=== PATIENT | female | born 1960 | race Caucasian/White ===

== ENCOUNTER 2019-12-20 14:59 | Outpatient (CLI) | payer OTHER, SELFPAY ==
--- NOTE | ~2019-12-20 | MM_ITS ---
EXAMINATION: MM screening [facility] BI w serena HISTORY: Screening mammogram TECHNIQUE: Craniocaudal and mediolateral oblique 3-D tomosynthesis images were obtained and synthetic 2-D images were generated. CAD analysis was submitted and interpreted. COMPARISON: 11/15/2018, 11/09/2017, 09/30/2016 BREAST PARENCHYMAL COMPOSITION: There are scattered areas of fibroglandular density. FINDINGS: There is no evidence of suspicious mass, calcification, or architectural distortion to sugg est malignancy in either breast. There has been no suspicious interval change. IMPRESSION: 1. No mammographic evidence of malignancy. 2. Recommend routine screening mammography in one year. BI-RADS Category 1: Negative Reviewed, dictated and finalized at location A.
== END 2019-12-20 15:00 | disposition home or self-care (01) ==
LOC: ANHIMG 15:00
PROVIDERS: PCP Internal Medicine
DX: Z12.31 Encounter for screening mammogram for malignant neoplasm of breast (principal)
CPT/HCPCS: 77063; 77067

== ENCOUNTER 2021-03-06 08:04 | Outpatient (CLI) | payer OTHER, SELFPAY ==
--- NOTE | ~2021-03-06 | MM_ITS ---
EXAMINATION: MM screening [facility] BI w serena HISTORY: Screening mammogram TECHNIQUE: Craniocaudal and mediolateral oblique 3-D tomosynthesis images were obtained and synthetic 2-D images were generated. CAD analysis was submitted and interpreted. COMPARISON: 12/20/2019, 11/15/2018, 11/09/2017 bilateral digital screening mammogram examinations BREAST PARENCHYMAL COMPOSITION: There are scattered areas of fibroglandular density. FINDINGS: Scattered bilateral benign calcifications. There is no evidence of suspicious mass, calcifi cation, or architectural distortion to suggest malignancy in either breast. There has been no suspici ous interval change. IMPRESSION: 1. No mammographic evidence of malignancy. 2. Recommend routine screening mammography in one year. BI-RADS Category 2: Benign finding(s). Reviewed, dictated and finalized at location A.
== END 2021-03-06 08:05 | disposition home or self-care (01) ==
LOC: ANHIMG 08:10
PROVIDERS: PCP Internal Medicine
DX: Z12.31 Encounter for screening mammogram for malignant neoplasm of breast (principal)
CPT/HCPCS: 77063; 77067

== ENCOUNTER 2022-04-28 09:46 | Outpatient (CLI) | payer OTHER, SELFPAY ==
--- NOTE | ~2022-04-28 | MM_ITS ---
EXAMINATION: MM screening [facility] BI w serena HISTORY: Screening TECHNIQUE: Craniocaudal and mediolateral oblique 3-D tomosynthesis images were obtained and synthetic 2-D images were generated. CAD analysis was submitted and interpreted. COMPARISON: Comparison to multiple prior studies sequentially, with oldest reviewed study dated 09/30. BREAST PARENCHYMAL COMPOSITION: There are scattered areas of fibroglandular density. FINDINGS: There is no evidence of suspicious mass, calcification, or architectural distortion to sugg est malignancy in either breast. There has been no suspicious interval change. IMPRESSION: 1. No mammographic evidence of malignancy. 2. Recommend routine screening mammography in one year. BI-RADS Category 1: Negative Reviewed, dictated and finalized at location A. 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
== END 2022-04-28 09:47 | disposition home or self-care (01) ==
LOC: ANHIMG 09:52
PROVIDERS: PCP Internal Medicine
DX: Z12.31 Encounter for screening mammogram for malignant neoplasm of breast (principal)
CPT/HCPCS: 77063; 77067

== ENCOUNTER 2023-06-10 15:47 | Outpatient (CLI) | payer OTHER, SELFPAY ==
--- NOTE | ~2023-06-10 | MM_ITS ---
EXAMINATION: MM screening [facility] BI w serena HISTORY: Screening mammogram TECHNIQUE: Craniocaudal and mediolateral oblique 3-D tomosynthesis images were obtained and synthetic 2-D images were generated. CAD analysis was submitted and interpreted. COMPARISON: 04/28/2022, 03/02/2021, 12/20/2019 bilateral screening mammogram examinations BREAST PARENCHYMAL COMPOSITION: There are scattered areas of fibroglandular density. FINDINGS: There is no evidence of suspicious mass, calcification, or architectural distortion to sugg est malignancy in either breast. There has been no suspicious interval change. IMPRESSION: 1. No mammographic evidence of malignancy. 2. Recommend routine screening mammography in one year. BI-RADS Category 1: Negative Reviewed, dictated and finalized at location A. 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
== END 2023-06-10 15:48 | disposition home or self-care (01) ==
PROVIDERS: PCP Family Medicine
DX: Z12.31 Encounter for screening mammogram for malignant neoplasm of breast (principal)
CPT/HCPCS: 77063; 77067

== ENCOUNTER 2024-06-29 00:24 | Day surgery (SDC) | payer OTHER, SELFPAY ==
[2024-06-14 16:12] VITALS: BMI 23.1
[2024-06-29] MEDS: LACTATED RINGERS 1,000 ML 150 ML IV CONT (09:53)
[2024-06-29 09:54] LABS: Glucose Point of Care 79 mg/dl (65-105)
--- NOTE | 2024-06-29 10:03 | PM.HPGS ---
History of Present Illness History of Present Illness Consent: Risks, benefits, and alternatives have been discussed and questions answered. Patient agrees to proceed with procedure. Chief complaint: screening malignant neoplasm colon Narrative: Antoinette Navarro is a 64 year old female here for screening colonoscopy, last one 10 years ago Review of Systems Review of Systems: All systems reviewed & are unremarkable except as noted in HPI and below PMFSH Family History Family History Father Hypertension Family history of diabetes mellitus in first degree relative Mother Hypertension Family history of diabetes mellitus in first degree relative Family history of malignant neoplasm of ovary Sibling Hypertension Family history of diabetes mellitus in first degree relative Social History Social History Smoking packs per day: 1 Smoking cigarettes per day: 20.0 Years smoked: 20 Smoking pack-years: 20.00 Smoking status: Former smoker Tobacco type: cigarettes Second hand tobacco smoke exposure: No Smoking end date: 06/13/95 Additional smoking assessment comments: quit smoking 25 years ago Alcohol intake: never Alcohol use details: socially Substance use: never Substance use type: does not use Lack of Transportation: No Lack of Food: Never True Current Housing: I Have Housing Concerned About Future Housing: No Difficulty Paying Gas/Electric Bills: No Difficulty Paying for Meds: No Currently Unemployed: No Education: Bachelor's Degree Difficulty w/ Childcare or Family Care: No Living arrangements: with family Spiritual care concerns: No Meds Home Medications and Allergies Home Medications ?Medication ?Instructions ?Recorded ?Confirmed ?Type lisinopril 40 mg tablet See Rx Instructions .Route 07/26/23 06/29/24 Rx .COMPLEX #90 tabs tirzepatide 15 mg/0.5 mL 15 mg (0.5 mL) subcut WEEKLY #6 mL 02/14/24 06/29/24 Rx subcutaneous pen injector (Max) dapagliflozin propanediol 5 mg 5 mg PO DAILY #90 tabs 02/29/24 06/29/24 Rx tablet (Farxiga) metformin 500 mg tablet See Rx Instructions .Route 04/24/24 06/29/24 Rx .COMPLEX #90 tabs atorvastatin 20 mg tablet 20 mg PO DAILY #90 tabs 05/14/24 06/29/24 Rx Allergies Allergy/AdvReac Type Severity Reaction Status Date / Time No Known Allergies Allergy Verified 06/14/24 16:05 Exam Const: General: comfortable and no acute distress HENMT: Face/Nose/Sinus: Normal nares present Eyes: General: appearance normal, both eyes and all related structures Neck: Neck: no JVD Resp: Auscultation: clear to auscultation bilaterally Cardio: Rate: regular rate Rhythm: regular rhythm GI: Inspection: non-distended GI Palp: Yes Soft to palpation Skin: General skin exam: normal color Neuro: General: gait normal Speech: normal speech Extrem: General: normal to inspection Psych: Mental Status: mental status grossly normal Assessment and Plan Assessment and plan (1) Colon cancer screening: Code(s): Z12.11 - Encounter for screening for malignant neoplasm of colon Status: Acute Assessment and Plan: colonoscopy
--- NOTE | 2024-06-29 10:07 | P.PNAN_ITS ---
Anes - Initial Pre Proc Eval Procedure: Operation Date: 06/29/24 12:00 Proposed Procedures p Screening Colonoscopy - Neri Walker MD Date/Time: 06/29/24 10:07 Surgeon: Neri Walker MD Pre Op Diagnosis: screening malignant neoplasm colon Patient Data Age: 64 Gender: F Height: 1.68 m Weight: 61.7 kg Allergies Allergy/AdvReac Type Severity Reaction Status Date / Time No Known Allergies Allergy Verified 06/14/24 16:05 Home Medications ?Medication ?Instructions ?Recorded ?Confirmed ?Type lisinopril 40 mg tablet See Rx Instructions .Route 07/26/23 06/29/24 Rx .COMPLEX #90 tabs tirzepatide 15 mg/0.5 mL 15 mg (0.5 mL) subcut WEEKLY #6 mL 02/14/24 06/29/24 Rx subcutaneous pen injector (Mounjaro) dapagliflozin propanediol 5 mg 5 mg PO DAILY #90 tabs 02/29/24 06/29/24 Rx tablet (Farxiga) metformin 500 mg tablet See Rx Instructions .Route 04/24/24 06/29/24 Rx .COMPLEX #90 tabs atorvastatin 20 mg tablet 20 mg PO DAILY #90 tabs 05/14/24 06/29/24 Rx Laboratory Tests 06/29/24 09:48 POC Capillary Glucose 79 mg/dl (65-105) Patient hx anesthesia problems: none Family hx anesthesia problems: none Results Review: All pre-operative results and documents have been reviewed as part of the pre- operative evaluation. COUNT INCLUDES THE [facility] Past Medical History Medical History (Updated 06/29/24 @ 10:08 by Faizan Puentes MD) Dyslipidemia Restless leg T2DM (type 2 diabetes mellitus) Family History Family History Father Hypertension Family history of diabetes mellitus in first degree relative Mother Hypertension Family history of diabetes mellitus in first degree relative Family history of malignant neoplasm of ovary Sibling Hypertension Family history of diabetes mellitus in first degree relative Social History Social History Smoking packs per day: 1 Smoking cigarettes per day: 20.0 Years smoked: 20 Smoking pack-years: 20.00 Smoking status: Former smoker Tobacco type: cigarettes Second hand tobacco smoke exposure: No Smoking end date: 06/13/95 Additional smoking assessment comments: quit smoking 25 years ago Alcohol intake: never Alcohol use details: socially Substance use: never Substance use type: does not use Lack of Transportation: No Lack of Food: Never True Current Housing: I Have Housing Concerned About Future Housing: No Difficulty Paying Gas/Electric Bills: No Difficulty Paying for Meds: No Currently Unemployed: No Education: Bachelor's Degree Difficulty w/ Childcare or Family Care: No Living arrangements: with family Spiritual care concerns: No Anes - Eval Final PreProcedure Day of Procedure 06/29/24 10:07 Patient weight: normal Heart: regular rate and rhythm Lungs: clear to auscultation Airway: Mallampati scale class II Neurological: alert and oriented Last oral intake: >/= 8 hours ASA classification: III Emergent: no Anesthetic plan: proceed Anesthesia type and monitoring: general GIVS and standard monitoring Results Review: All pre-operative results and documents have been reviewed as part of the pre- operative evaluation. Informed Consent: The patient's anesthetic plan and its attendant risks and benefits were discussed with the patient/family/POA. Questions were solicited and answers provided to the satisfaction of the patient/family/POA.
[2024-06-29 10:23] VITALS: BP 108/57; PULSE 94; RESP 16; O2SAT 100
[2024-06-29 10:33] VITALS: BP 93/67; PULSE 98; RESP 21; O2SAT 100
[2024-06-29 10:43] VITALS: BP 119/67; PULSE 98; RESP 23; O2SAT 100
--- OUTSIDE RECORDS SUMMARY | 2024-07-05 04:49 | XMS_ITS | Referral Summary ---
Author Organization [facility] Address [address] [place] [address] Care Team Providers Care Regional Education Coordinator Name Role Phone Kodi Medina MD Unavailable [phone] Tejas Jean DO Primary Care Provider [phone] [facility],non-[facility] Affiliates and Associated Physician Practices is amultiple site organization consisting of ambulatory clinics and hospital sitesin [place], [place], [place] and [place]. This disclosure is being madepursuant to the Care Everywhere program and may not contain all information available regarding this patient. Last updated 18.[facility] Encounters Date Type Department Care Team Description 05/09/2024 Travel 05/09/2024 10:00 AM TELEPHONE SURVEYOR Office Visit [facility] [address] [place] [address], [address] [place] [address] Kodi Medina MD Pap smear, as part of routine gynecological examination (Primary Dx) from Last 3 Months Allergies No known active allergies Medications * Be aware that medications may not be up to date on this document. Alwaysverify current medications with the patient. Medication Sig Dispensed Refills Start Date End Date Status metFORMIN (GLUCOPHAGE) 500 MG tablet Take 1 (one) tablet by mouth once daily 07/22/2012 Active lisinopril (PRINIVIL; ZESTRIL) 40 MG tablet Take 1 (one) tablet by mouth once daily Active atorvastatin (LIPITOR) 20 MG tablet Take 1 (one) tablet by mouth at bedtime Active dapagliflozin propanediol (Farxiga) 5 MG tablet Take 1 (one) tablet by mouth every morning 01/12/2020 Active tirzepatide (Mounjaro) 15 MG/0.5ML injection Inject 15 (fifteen) mg subcutaneously every 7 days Active Active Problems Problem Noted Date Diagnosed Date Screening for condition 05/06/2008 Overview (03/13/2015): Adult Abstraction Problem List Screening Pap Smear: Result: 05/22/2007 Mammogram: Result: 06/24/2007 Immunizations Name Administration Dates Next Due INFLUENZA VACCINE, QUADR. (F LUZONE; FLULAVAL; FLUARIX; AFLURIA QUADRIVALENT; 6MO+), 0.5 ML (IIV4) 02/27/2020,04/05/2018 PNEUMOCOCCAL PCV20 CONJ VAC IM 09/11/2021 PNEUMOCOCCAL PPV VACCINE 10/24/2018 TDAP, HISTORIC VACCINE 06/25/2021 Zoster Hzv Vacc Recombinant Inj Im 03/16/2019, iNFLUENZA VACCINE, RECOM-BOSS, QUADR. (FLUBLOCK QUADRIVALENT; 18Y+) (RIV4) 06/25/2021,03/16/2019 Social History Tobacco Use Types Packs/Day Years Used Date Smoking Tobacco: Never Smokeless Tobacco: Never Alcohol Use Standard Drinks/Week Comments Yes 0 (1 standard drink = 0.6 oz pur e alcohol) rare PHQ-2 Answer Date Recorded Patient Health Questionnaire-2 Score 0 05/02/2024 Sex and Gender Information Value Date Recorded Sex Assigned at Female 11/28/2020 12:52 PM CDT Gender Identity Female 11/28/2020 12:52 PM CDT Sexual Orientation Straight 11/28/2020 12 :52 PM CDT Last Filed Vital Signs Vital Sign Reading Time Taken Comments Blood Pressure 130/78 05/09/2024 10:02 AM TELEPHONE SURVEYOR Pulse 82 08/19/2011 2:48 PM TELEPHONE SURVEYOR Temperature 36.7 ??C (98 ??F) 08/19/2011 1:26 PM TELEPHONE SURVEYOR Respiratory Rate 18 08/19/2011 2:48 PM TELEPHONE SURVEYOR Oxygen Saturation 98% 08/19/2011 2:48 PM TELEPHONE SURVEYOR Inhaled Oxygen Concentration - - Weight 65.9 kg (145 lb 3.2 oz) 05/09/2024 10:02 AM TELEPHONE SURVEYOR Height 167.6 cm (5' 6 ) 05/09/2024 10:02 AM TELEPHONE SURVEYOR Body Mass Index 23.44 05/09/2024 10:02 AM TELEPHONE SURVEYOR Plan of Treatment Not on file Procedures Procedure Name Priority Date/Time Associated Diagnosis Comments PAP IG RFLX HPV HR ASCUS RFLX 16/18/45 Routine 05/09/2024 10:10 AM TELEPHONE SURVEYOR Pap smear, as part of routine gynecological examination MAMMOGRAM 06/10/2023 from Last 3 Months or Most Recently Relevant to Health Maintenance Results * PAP IG RFLX HPV HR ASCUS RFLX 16/18/45 (05/09/2024 10:10 AM TELEPHONE SURVEYOR) Diagnosis Comment [facility] ACCOUNT BILL Comment: NEGATIVE FOR INTRAEPITHELIAL LESION OR MALIGNANCY. CELLULAR CHANGES ASSOCIATED WITH ATROPHY ARE PRESENT. Specimen Adequacy Comment [facility] ACCOUNT BILL Comment: Satisfactory for evaluation. ??Endocervical and/or squamous metaplastic cells (endocervical component) are present. Clinician Provided ICD10 Comment [facility] ACCOUNT BILL Comment:Z01.419 Performed by Comment [facility] ACCOUNT BILL Comment:Elvie Mane, Cyto technologist (ASCP) Comment . [facility] ACCOUNT BILL Note Comment [facility] ACCOUNT BILL Comment: The Pap smear is a screening test designed to aid in the detection of premalignant and malignant conditions of the uterine cervix. ??It is not a diagnostic procedure and should not be used as the sole means of detecting cervical cancer. ??Both false-positive and false-negative reports do occur. IGLBP CPT Code Automation Comment [facility] ACCOUNT BILL Comment: This liquid based ThinPrep(R) pap test was screened with the use of an image guided system. Note Comment [facility] ACCOUNT BILL Comment: The HPV DNA reflex criteria were not met with this specimen result therefore, no HPV testing was performed. Pathology/Cytolog y PART OF UTERINE CERVIX / Unknown 05/09/2024 10:10 AM TELEPHONE SURVEYOR 05/09/2024 Comment:Cervix Release to pa ladonna Narrative [facility] ACCOUNT BILL - 05/17/2024 5:09 PM TELEPHONE SURVEYOR Performed at: ??01 - [address], [place] ??[id number] Active Directory Specialist: Ruthy Diego MD, Phone: ??[phone] Specimen Comment: [id number] Specimen Comment: Source.............Cervix;Endocervix Specimen Comment: No. of containers..01 ThinPrep Vial Kodi Medina MD LAB - PATHOLOGY/CYTO LOGY ORDERABLES [facility] ACCOUNT BILL [address] [place] [address] * MAMMOGRAM (06/10/2023) Anatomical Region Laterality Modality Other 06/10/2023 Narrative 06/10/2023 Ordered by an unspecified provider. Scanned Document SCANNING ONLY from Last 3 Months or Most Recently Relevant to Health Maintenance Advance Directives * FULL RESUSCITATION (Latest Code Status on File) Date Activated Date Inactivated Comments 08/18/2011 8:14 AM 08/20/2011 3:32 AM * FULL RESUSCITATION Date Activated Date Inactivated Comments 06/09/2011 2:57 PM 06/11/2011 12:36 AM Care Teams Regional Education Coordinator Relationship Specialty Start Date End Date Kodi Medina MD PCP - OBGYN 05/06/08 Tejas Jean DO [address] [place] [address] PCP - General Internal Medicine 02/26/22
--- OUTSIDE RECORDS SUMMARY | 2024-07-05 04:49 | XMS_ITS | Patient Health Summary ---
Author Organization [facility] [employer] Address [address] [place] [address] Care Team Providers Care Executive Administrator Name Role Phone Kodi Méndez MD Unavailable [phone] Tejas Jean DO Primary Care Provider [phone] Note from [facility],non-owned Affiliates and Associated Physician Practices is amultiple site organization consisting of ambulatory clinics and hospital sitesin [place], [place], [place] and [place]. This disclosure is being madepursuant to the Care Everywhere program and may not contain all information available regarding this patient. Last updated 18.[facility] Allergies No known active allergies Medications * Be aware that medications may not be up to date on this document. Alwaysverify current medications with the patient. * metFORMIN (GLUCOPHAGE) 500 MG tablet(Started 07/22/2012) Take 1 (one) tablet by mouth once daily * lisinopril (PRINIVIL; ZESTRIL) 40 MG tablet Take 1 (one) tablet by mouth once daily * atorvastatin (LIPITOR) 20 MG tablet Take 1 (one) tablet by mouth at bedtime * dapagliflozin propanediol (Farxiga) 5 MG tablet(Started 01/12/2020) Take 1 (one) tablet by mouth every morning * tirzepatide (Mounjaro) 15 MG/0.5ML injection Inject 15 (fifteen) mg subcutaneously every 7 days Active Problems Problem Noted Date Diagnosed Date Screening for condition 05/06/2008 Immunizations * INFLUENZA VACCINE, QUADR. (FLUZONE; FLULAVAL; FLUARIX; AFLURIA QUADRIVALENT; 6MO+), 0.5 ML (IIV4)(Given 02/27/2020, 04/05/2018) * PNEUMOCOCCAL PCV20 CONJ VAC IM(Given 09/11/2021) * PNEUMOCOCCAL PPV VACCINE(Given 10/24/2018) * TDAP, HISTORIC VACCINE(Given 06/25/2021) * Zoster Hzv Vacc Recombinant Inj Im(Given 03/16/2019, 10/24/2018) * iNFLUENZA VACCINE, RECOM-BOSS, QUADR. (FLUBLOCK QUADRIVALENT; 18Y+) (RIV4)(Given 06/25/2021, 03/16/2019) Social History Tobacco Use Types Packs/Day Years [...] Comments Blood Pressure 130/78 05/09/2024 10:02 AM COMPOUND MIXER Pulse 82 08/19/2011 2:48 PM COMPOUND MIXER Temperature 36.7 ??C (98 ??F) 08/19/2011 1:26 PM COMPOUND MIXER Respiratory Rate 18 08/19/2011 2:48 PM COMPOUND MIXER Oxygen Saturation 98% 08/19/2011 2:48 PM COMPOUND MIXER Inhaled Oxygen Concentration - - Weight 65.9 kg (145 lb 3.2 oz) 05/09/2024 10:02 AM COMPOUND MIXER Height 167.6 cm (5' 6 ) 05/09/2024 10:02 AM COMPOUND MIXER Body Mass Index 23.44 05/09/2024 10:02 AM COMPOUND MIXER Procedures * PAP IG RFLX HPV HR ASCUS RFLX 16/18/45(Performed 05/09/2024) Performed for Pap smear, as part of routine gynecological examination * MAMMOGRAM(Performed 06/10/2023) * PAP IG RFLX HPV HR ASCUS RFLX 16/18/45(Performed 03/01/2023) Performed for Pap smear, as part of routine gynecological examination * PAP IG RFLX HPV HR ASCUS RFLX 16/18/45(Performed 02/26/2022) * MAMMOGRAM(Performed 03/06/2021) * PAP IG RFLX HPV HR ASCUS RFLX 16/18/45(Performed 12/05/2020) Performed for Pap smear, as part of routine gynecological examination * MAMMOGRAPHY ORDER(Performed 12/20/2019) * MAMMOGRAPHY ORDER(Performed 11/09/2017) * PAP IG LB RFLX HPV HR ASCU RFLX 16,18(Performed 11/02/2017) Performed for Pap smear, as part of routine gynecological examination * PAP IG LB RFLX HPV HR ASCU RFLX 16,18(Performed 11/01/2016) Performed for Routine gynecological examination * MAMMOGRAPHY ORDER(Performed 09/30/2016) * MAMMOGRAPHY ORDER(Performed 10/01/2015) * PAP IG RFLX HPV ASCU(Performed 03/19/2015) Performed for Well female exam with routine gynecological exam * MAMMO BILAT SCREENING(Performed 09/18/2014) * PAP IG LB RFLX HPV HR ASCU RFLX 16,18(Performed 01/16/2014) Performed for Routine gynecological examination * MAMMO BILAT SCREENING(Performed 09/14/2013) * PAP IG LB RFLX HPV HR ASCU RFLX 16,18(Performed 10/17/2012) Performed for Routine Gynecological Examination * MAMMO BILAT SCREENING(Performed 08/30/2012) Performed for Breast cancer screening * MAMMO LEFT DIAGNOSTIC(Performed 08/27/2011) * MAMMO BILAT SCREENING(Performed 08/21/2011) * GROSS + MICRO EXAM(Performed 08/19/2011) * GROSS + MICRO EXAM(Performed 08/19/2011) * CBC W AUTO DIFFERENTIAL(Performed 08/19/2011) * HCG URINE QUALITATIVE - POINT OF CARE(Performed 08/19/2011) * CARDIAC RHYTHM STRIP ORDER(Performed 06/19/2011) * CBC W AUTO DIFFERENTIAL(Performed 06/10/2011) Performed for Pre-op testing * HCG URINE QUALITATIVE - POINT OF CARE(Performed 06/10/2011) * GROSS + MICRO EXAM(Performed 06/10/2011) * GROSS + MICRO EXAM(Performed 06/10/2011) * CBC W/O DIFFERENTIAL(Performed 05/31/2011) Performed for Menorrhagia * GROSS + MICRO EXAM(Performed 05/18/2011) * GROSS + MICRO EXAM(Performed 05/18/2011) * CBC W AUTO DIFFERENTIAL(Performed 2011) * PAP IG LB RFLX HPV HR ASCU RFLX 16,18(Performed 12/29/2010) Performed for Routine gynecological examination * MAMMO RIGHT DIAGNOSTIC(Performed 08/19/2010) * MAMMO BILAT SCREENING(Performed 08/08/2010) * PAP IG RFLX HPV ASCU(Performed 10/11/2009) Performed for Routine Gynecological Examination * MAMMO BILAT SCREENING(Performed 07/26/2009) * PAP IG RFLX HPV ASCU(Performed 07/16/2008) * MAMMO BILAT SCREENING(Performed 07/06/2008) * CYTOLOGY SMEAR PAP(Performed 08/19/1998) Results * PAP IG RFLX HPV HR ASCUS RFLX 16/18/45 (05/09/2024 10:10 AM COMPOUND MIXER) Only the most recent of4 resultswithin the time period is included. Diagnosis Comment [facility] ACCOUNT BILL Comment: NEGATIVE [...] UTERINE CERVIX / Unknown 05/09/2024 10:10 AM COMPOUND MIXER 05/09/2024 Comment:Cervix Release to jayashree dougherty Narrative [facility] ACCOUNT BILL - 05/17/2024 5:09 PM COMPOUND MIXER Performed at: ??[address] - [address] [place] ??[id number] Security Tester: Ruthy Diego MD, Phone: ??[phone] Specimen Comment: [id number] Specimen Comment: Source.............Cervix;Endocervix Specimen Comment: No. of containers..01 ThinPrep Vial Kodi Méndez MD LAB - PATHOLOGY/CYTO LOGY ORDERABLES [facility] ACCOUNT BILL [address] [place] [address] * MAMMOGRAM (06/10/2023) Only the most recent of2 resultswithin the time period is included. Anatomical Region Laterality Modality Other 06/10/2023 Narrative 06/10/2023 Ordered by an unspecified provider. Scanned Document SCANNING ONLY * MAMMOGRAPHY ORDER (12/20/2019) Only the most recent of4 resultswithin the time period is included. Anatomical Region Laterality Modality Mammography Provider Unknown MAMMO ORDERABLES * PAP IG LB RFLX HPV HR ASCU RFLX 16,18 (11/02/2017 11:25 AM CDT) Only the most recent of5 resultswithin the time period is included. Diagnosis [facility] INSURANCE BILL Comment:NEGATIVE FOR INTRAEP ITHELIAL LESION AND MALIGNANCY. Specimen Adequacy [facility] INSURANCE BILL Comment: Satisfactory for evaluation. ??Endocervical and/or squamous metaplastic cells (endocervical component) are present. Clinician Provided ICD10 [facility] INSURANCE BILL Comment:Z01.419 Performed by [facility] INSURANCE BILL Comment:Maine Horne, Cyto technologist (ASCP) Comment . [facility] INSURANCE BILL Note [facility] INSURANCE BILL Comment: The Pap smear is a screening test designed to aid in the detection of premalignant and malignant conditions of the uterine cervix. ??It is not a diagnostic procedure and should not be used as the sole means of detecting cervical cancer. ??Both false-positive and false-negative reports do occur. ? . IGLBP CPT Code Automation [facility] INSURANCE BILL Comment: This liquid based ThinPrep(R) pap test was screened with the use of an image guided system. Note [facility] INSURANCE BILL Comment: The HPV DNA reflex criteria were not met with this specimen result therefore, no HPV testing was performed. ? . PART OF UTERINE CERVIX / Unknown 11/02/2017 11:25 AM CDT 11/03/2017 Narrative [facility] INSURANCE BILL - 11/04/2017 3:18 PM CDT No. of containers..01 ThinPrep Vial Resulting Agency Comment [facility] [place] [address] [facility] ??[place] [phone] Kodi Méndez MD LAB - PATHOLOGY/CYTO LOGY ORDERABLES Performing Organization Address City/State/[facility] Co de Phone Number [facility] INSURANCE BILL [address] [place] [address] * PAP SMEAR IG RFLX HPV ASCU (PO REF LAB) (03/19/2015 10:16 AM CDT) Only the most recent of3 resultswithin the time period is included. Diagnosis [facility] INSURANCE BILL Comment:NEGATIVE FOR INTRAEP ITHELIAL LESION AND MALIGNANCY. Specimen Adequacy [facility] INSURANCE BILL Comment: Satisfactory for evaluation. ??Endocervical and/or squamous metaplastic cells (endocervical component) are present. Clinician Provided ICD10 [facility] INSURANCE BILL Comment:Z01.419 Performed by [facility] INSURANCE BILL Comment:Herbie Aldanat echnologist (ASCP) Comment . [facility] INSURANCE BILL Note [facility] INSURANCE BILL Comment: The Pap smear is a screening test designed to aid in the detection of premalignant and malignant conditions of the uterine cervix. ??It is not a diagnostic procedure and should not be used as the sole means of detecting cervical cancer. ??Both false-positive and false-negative reports do occur. ? . IGLBP CPT Code Automation [facility] INSURANCE BILL Comment: This liquid based ThinPrep(R) pap test was screened with the use of an image guided system. Note [facility] INSURANCE BILL Comment: The HPV DNA reflex criteria were not met with this specimen result therefore, no HPV testing was performed. ? . Miscellaneous samples (specimen) PART OF UTERINE CERVIX / Unknown 03/19/2015 10:16 AM CDT 03/20/2015 3:30 AM CDT Narrative [facility] INSURANCE BILL - 03/23/2015 3:09 PM CDT No. of containers..01 CYTYC Thin Prep Vial Resulting Agency Comment [facility] [place] [address] [facility] ??[place] [phone] Kodi Méndez MD LAB - PATHOLOGY/CYTO LOGY ORDERABLES [facility] INSURANCE BILL * MAMMO SCREENING DIGITAL IMAGE BILAT (09/18/2014) Only the most recent of7 resultswithin the time period is included. Anatomical Region Laterality Modality Breast Bilateral Other Kodi Méndez MD MAMMO ORDERABLES * MAMMO DIAG DIRECT DIGITAL IMAGE UNIL LEFT (08/27/2011) Anatomical Region Laterality Modality Left Other Kodi Méndez MD MAMMO ORDERABLES * GROSS + MICRO EXAM (08/19/2011 11:20 AM COMPOUND MIXER) Only the most recent of6 resultswithin the time period is included. Result CASE NUMBER [id number] Comment: ORDERING PHYSICIAN ??KODI MÉNDEZ SPECIMEN TYPE ?Endometrium,Curetti DATE OF PROCEDURE ?08/19/2011 SPECIMEN LABELED ? Endometrial curetting PRE-OP DIAGNOSIS ? Menorrhagia GROSS DESCRIPTION ? GROSS DESCRIPTION Received in formalin in a container labeled, Antoinette Navarro, endometrial curetting . The container holds a clear suction cup device containing multiple pink-gooden and red tissue fragments measuring ??3 x 2.5 x 0.2 cm in aggregate. The specimen is placed in a nylon tea bag and entirely submitted in a single cassette. DYT/na MICROSCOPIC DESCRIPTION Histologic sections show fragments of inactive endometrium. One fragment shows a benign smooth muscle proliferation consistent with a submucosal/intramucosal leiomyoma. There is no evidence of hyperplasia or malignancy. KL/na DIAGNOSIS Uterus, endometrium, curettage - ? Inactive endometrium - ? Submucosal leiomyoma - ? No evidence of hyperplasia or malignancy KL/na CPT ??94341 Supervisor Wool Shearing ? MADAY SCHUMACHER Electronically Signed By ? SOPHIA ELIZABETH MISCELLANEOUS SAMPLES / Unknown 08/19/2011 11:20 AM COMPOUND MIXER 08/19/2011 2:19 PM COMPOUND MIXER Historical Provider LAB - PATHOLOGY/C YTOLOGY ORDERABLES * (ABNORMAL) CBC W AUTO DIFFERENTIAL (08/19/2011 10:00 AM COMPOUND MIXER) Only the most recent of3 resultswithin the time period is included. WBC 7.97 4.0 - 11.0 X(10)9/L [facility] RBC 4.61 3.8 - 5.3 X(10)12/L [facility] Hemoglobin 12.4 12.0 - 16.0 gm/dl [facility] Hematocrit 37.8 36 - 47 % [facility] MCV 82.0 80.0 - 99.0 fl [facility] MCH 26.9 26 - 34 pg [facility] MCHC 32.8 32.0 - 37.0 gm/dl [facility] RDW 14.8(H) 11.5 - 14.5 % [facility] Platelet Count 238 150 - 400 X(10)9/L [facility] MPV 11.6 9.2 - 12.2 fl [facility] Granulocytes % 73.2(H) 43 - 70 % [facility] Granulocytes Absolute 5.83 1.7 - 6.7 X(10)3 [facility] Lymphocytes % 20.3(L) 22 - 41 % [facility] Lymphocytes Absolute 1.62 0.9 - 3.2 X(10)3 [facility] Monocytes % 5.5 2.0 - 11.0 % [facility] Monocytes Absolute 0.44 0.2 - 0.9 X(10)3 [facility] Eosinophils % 0.5 0.0 - 5.0 % [facility] Eosinophils Absolute 0.04 0.0 - 0.4 X(10)3 [facility] Basophils % 0.5 0 - 2 % [facility] Basophils Absolute 0.04 0.0 - 0.2 X(10)3 [facility] Comment Manual Diff Manual Diff Not Indicated [facility] Blood specimen (specimen) BLOOD SPECIMEN / Unknown 08/19/2011 10:00 AM COMPOUND MIXER 08/19/2011 10:04 AM COMPOUND MIXER Kodi Méndez MD LAB - HEMATOLOGY ORD ERABLES [facility] [address] [place] [id number] * HCG URINE QUALITATIVE - POINT OF CARE (08/19/2011 8:55 AM COMPOUND MIXER) Only the most recent of2 resultswithin the time period is included. Pathologist [facility] HCG Qual Urine negative Negative [facility] QC Verified yes Yes [facility] POC T TESTING Urine specimen (specimen) URINE / Unknown 08/19/2011 8:55 AM COMPOUND MIXER Kodi Méndez MD LAB - POINT OF CARE ORDERABLES [facility] [address] [id number] * CARDIAC RHYTHM STRIP ORDER (06/19/2011 1:39 PM COMPOUND MIXER) Narrative Transcriptions Document, Scanned - 06/19/2011 1:39 PM CST Scanned Document CARDIAC SERVICES ORD ERABLES * (ABNORMAL) CBC W/O DIFFERENTIAL (05/31/2011 3:55 PM COMPOUND MIXER) WBC 6.5 4.0 - 10.5 x10E3/uL [facility] INSURANCE BILL RBC 4.57 3.80 - 5.10 x10E6/uL [facility] INSURANCE BILL Hemoglobin 9.3(L) 11.5 - 15.0 g/dL [facility] INSURANCE BILL Hematocrit 34.0 34.0 - 44.0 % [facility] INSURANCE BILL MCV 74(L) 80 - 98 fL [facility] INSURANCE BILL MCH 20.4(L) 27.0 - 34.0 pg [facility] INSURANCE BILL MCHC 27.4(L) 32.0 - 36.0 g/dL [facility] INSURANCE BILL RDW NOT NEEDED [facility] INSURANCE BILL Comment:Ancillary determined the test is not needed Platelet Count 351 140 - 415 x10E3/uL [facility] INSURANCE BILL nRBC NOT NEEDED [facility] INSURANCE BILL Comment:Ancillary determined the test is not needed Blood specimen (specimen) BLOOD SPECIMEN / Unknown 05/31/2011 3:55 PM COMPOUND MIXER 05/31/2011 10:46 PM COMPOUND MIXER Narrative Resulting Agency Comment [facility] [address] ??[facility] [phone] Kodi Méndez MD LAB - HEMATOLOGY ORD ERABLES [facility] INSURANCE BILL * MAMMO DIAG DIRECT DIGITAL IMAGE UNIL RIGHT (08/19/2010) Anatomical Region Laterality Modality Right Other Kodi Méndez MD MAMMO ORDERABLES * CYTOLOGY SMEAR PAP (08/19/1998 9:33 AM COMPOUND MIXER) Result CASE NUMBER [id number] Comment: ORDERING PHYSICIAN ??TATIANNA PURCELL SPECIMEN TYPE ?PAP Smear Date ? 08/19/1998 Procedure ?Cervical/Endocervical, 2 smears received Specimen Adequacy ?Satisfactory for Evaluation Categorization ? Within Normal Limits Snomed. ?08/21/1998 1432 <1> Manager Sourcing ? Montana Diaz (ASCP) PAP Footnote ? The PAP smear is only a screening procedure to aid in the detection of cervical cancer and its precursors. ??It is not a diagnostic procedure and should not be used as the sole means to detect cervical cancer. ??Both false negative and false positive results have been experienced. MISCELLANEOUS SAMPLES / Unknown 08/19/1998 9:33 AM COMPOUND MIXER 08/20/1998 9:33 AM COMPOUND MIXER Historical Provider LAB - PATHOLOGY/C YTOLOGY ORDERABLES Care Teams Executive Administrator Relationship Specialty Start Date End Date Kodi Méndez MD PCP - OBGYN 05/06/08 Tejas Jean DO [address] [facility] [address] [place] [id number] PCP - General Internal Medicine 02/26/22
--- OUTSIDE RECORDS SUMMARY | 2024-07-05 04:49 | XMS_ITS | Clinical Summary ---
Author Organization [facility] [employer] Address [address] [place] [address] Care Team Providers Care Tailoring Teacher Name Role Phone Kodi Medina MD Unavailable [phone] Tejas Jean DO Primary Care Provider Source Comments [facility],non-owned Affiliates and Associated Physician Practices is amultiple site organization consisting of ambulatory clinics and hospital sitesin [place], [place], [place] and [place]. This disclosure is being madepursuant to the Care Everywhere program and may not contain all information available regarding this patient. Last updated 18.[facility] Allergies No known active allergies Medications * [...] Pap Smear: Result: 05/22/2007 Mammogram: Result: 06/24/2007 Encounters Date Type Department Care Team Description 05/09/2024 10:00 AM [facility] [employer] [facility] Office Visit [facility] [address] [place] [address], [address] [place] [phone] Kodi Medina MD Pap smear, as part of routine gynecological examination (Primary Dx) 05/09/2024 Travel from Last 3 Months Immunizations Name Administration Dates Next Due INFLUENZA VACCINE, QUADR. (F LUZONE; FLULAVAL; FLUARIX; AFLURIA QUADRIVALENT; 6MO+), 0.5 ML (IIV4) 02/27/2020,04/05/2018 PNEUMOCOCCAL PCV20 CONJ VAC IM 09/11/2021 PNEUMOCOCCAL PPV VACCINE 10/24/2018 TDAP, HISTORIC VACCINE 06/25/2021 Zoster Hzv Vacc Recombinant Inj Im 03/16/2019, iNFLUENZA VACCINE, RECOM-BOSS, QUADR. (FLUBLOCK QUADRIVALENT; 18Y+) (RIV4) 06/25/2021,03/16/2019 Family History Medical History Relation Name Comments Cancer Mother Relation Name Status Comments Mother Social History Tobacco Use Types Packs/Day Years [...] Comments Blood Pressure 130/78 05/09/2024 10:02 AM [facility] Pulse 82 08/19/2011 2:48 PM [facility] Temperature 36.7 ??C (98 ??F) 08/19/2011 1:26 PM [facility] [employer] [employer] [facility] Respiratory Rate 18 08/19/2011 2:48 PM [facility] Oxygen Saturation 98% 08/19/2011 2:48 PM [facility] Inhaled Oxygen Concentration - - Weight 65.9 kg (145 lb 3.2 oz) 05/09/2024 10:02 AM [facility] Height 167.6 cm (5' 6 ) 05/09/2024 10:02 AM [facility] Body Mass Index 23.44 05/09/2024 10:02 AM [facility] Plan of Treatment Health Maintenance Due Date Last Done Comments COLOGUARD (AGES 45-75) - COLON CA SCREENING 1962 COLON MONITORING 1962 COLONOSCOPY - COLON CA SCREENING 1962 CT COLONOGRAPHY - COLON CA SCREENING 1962 Colorectal Cancer Screening 1962 FIT - COLON CA SCREENING 1962 FLEX SIG - COLON CA SCREENING 1962 HIV SCREENING 1977 HEPATITIS C SCREENING 05/05/1980 Respiratory Syncytial Virus (RSV) Vaccine Pt: or over 60 yrs (1 - Risk 60-74 years 1-dose series) 2022 COVID-19 VACCINE (2 - season) 2024 10/09/2020 INFLUENZA VACCINE (#1) 2024 , 02/27/2020, 03/16/2019, Additional history exists DEPRESSION SCREENING 06/13/2024 05/09/2024, 03/01/2023, 02/26/2022 MAMMOGRAM 06/10/2025 06/10/2023, 02/12, 12/20/2019, Additional history exists PAP SMEAR 05/09/2027 05/09/2024, 02/11, 02/26/2022, Additional history exists DTAP/TDAP/TD VACCINES (2 - Td or Tdap) 06/25/2031 06/25/2021 ZOSTER VACCINE Completed 03/16/2019, 10/24/2018 PNEUMOCOCCAL VACCINE 50+ Completed 09/11/2021, 10/11 PNEUMOCOCCAL VACCINE Aged Out 09/11/2021, 10/25/19 19 No longer eligible based on patient's age to complete this topic HEPATITIS B VACCINE Aged Out No longe r eligible based on patient's age to complete this topic HIB VACCINE Aged Out No longer eligi ble based on patient's age to complete this topic HPV VACCINE Aged Out No longer eligi ble based on patient's age to complete this topic MENINGOCOCCAL (Group B) VACCINE Aged Out No longer eligible based on patient's age to complete this topic MENINGOCOCCAL VACCINE Aged Out No tia ezio eligible based on patient's age to complete this topic Procedures Procedure Name Priority Date/Time Associated Diagnosis Comments PAP IG RFLX HPV HR ASCUS RFLX 16/18/45 Routine 05/09/2024 10:10 AM [facility] Pap smear, as part of routine gynecological examination MAMMOGRAM 06/10/2023 from Last 3 Months or Most Recently Relevant to Health Maintenance Results * PAP IG RFLX HPV HR ASCUS RFLX 16/18/45 (05/09/2024 10:10 AM [facility] [employer]) Diagnosis Comment [facility] ACCOUNT BILL Comment: NEGATIVE [...] UTERINE CERVIX / Unknown 05/09/2024 10:10 AM [facility] [employer] [facility] 05/09/2024 Comment:Cervix Release to jayashree Mayen [facility] ACCOUNT BILL - 05/17/2024 5:09 PM [facility] Performed at: ??01 - [facility] ??[id number] Senior Network Architect: Ruthy Diego MD, Phone: ??[phone] Specimen Comment: [id number] Specimen Comment: Source.............Cervix;Endocervix Specimen Comment: No. of containers..01 ThinPrep Vial Kodi Medina MD LAB - PATHOLOGY/CYTO LOGY ORDERABLES [facility] ACCOUNT BILL [address] [place] [address] * MAMMOGRAM (06/10/2023) Anatomical Region Laterality Modality [...] 2:57 PM 06/11/2011 12:36 AM Care Teams Tailoring Teacher Relationship Specialty Start Date End Date Kodi Medina MD PCP - OBGYN 05/06/08 Tejas Jean DO [address] [id number] PCP - General Internal Medicine 02/26/22
== END 2024-06-29 10:50 | disposition home or self-care (01) ==
PROVIDERS: PCP Family Medicine; Visit Provider Internal Medicine Gastroenterology
PROC: 0DJD8ZZ Inspection of Lower Intestinal Tract, Via Natural or Artificial Opening Endoscopic (ICD-10-PCS; CPT 45378; principal; 2024-06-29 12:00)
DX: Z12.11 Encounter for screening for malignant neoplasm of colon (principal); K64.8 Other hemorrhoids; K57.30 Diverticulosis of large intestine without perforation or abscess without bleeding; E78.5 Hyperlipidemia, unspecified; G25.81 Restless legs syndrome; E11.9 Type 2 diabetes mellitus without complications; Z79.84 Long term (current) use of oral hypoglycemic drugs; Z79.85 Long-term (current) use of injectable non-insulin antidiabetic drugs; Z87.891 Personal history of nicotine dependence; Z80.41 Family history of malignant neoplasm of ovary
CPT/HCPCS: 45378; 82948; J2704; J7120

== ENCOUNTER 2024-08-08 09:45 | Outpatient (CLI) | payer OTHER, SELFPAY ==
--- NOTE | ~2024-08-08 | MM_ITS ---
EXAMINATION: MM screening criss BI w serena HISTORY: Screening mammogram TECHNIQUE: Craniocaudal and mediolateral oblique 3-D tomosynthesis images were obtained and synthetic 2-D images were generated. CAD analysis was submitted and interpreted. COMPARISON: 06/01/2023, 04/28/2022, 03/06/2021, 12/20/2019 BREAST PARENCHYMAL COMPOSITION:Dense: The breasts are heterogeneously dense, which may obscure small masses. FINDINGS: No suspicious mass, calcification, or architectural distortion are identified in either sanya ast to suggest malignancy. There has been no suspicious interval change. IMPRESSION: No mammographic evidence of malignancy. Recommend routine screening mammography in one year. BI-RADS Category 1: Negative Reviewed, dictated and finalized at location . [facility] [employer]
--- OUTSIDE RECORDS SUMMARY | 2024-08-08 10:49 | XMS_ITS | Referral Summary ---
Author Organization [facility] Address [address] [facility] [place] [address] Care Team Providers Care Genetics Teacher Name Role Phone Kodi Medina MD Unavailable [phone] Tejas Jean DO Primary Care Provider [phone] Source Comments [facility] Aff[facility]ates and Associated Physician Practices is amultiple site organization consisting of ambulatory clinics and hospital sitesin [place], [place], [place] and [place]. This disclosure is being madepursuant to the Care Everywhere program and may not contain all information available regarding this patient. Last updated 18.[facility] Encounters Date Type Department Care Team Description 05/09/2024 Travel 05/09/2024 10:00 AM PHOTOGRAMMETRIC TECHNICIAN Office Visit [facility] - INSTRUMENTATION AND CONTROL TECHNICIAN [address] [place] [address], [address] [place] [address] Kodi Medina MD Pap smear, [...] Comments Blood Pressure 130/78 05/09/2024 10:02 AM PHOTOGRAMMETRIC TECHNICIAN Pulse 82 08/19/2011 2:48 PM PHOTOGRAMMETRIC TECHNICIAN Temperature 36.7 C (98 F) 08/19/2011 1:26 PM PHOTOGRAMMETRIC TECHNICIAN Respiratory Rate 18 08/19/2011 2:48 PM PHOTOGRAMMETRIC TECHNICIAN Oxygen Saturation 98% 08/19/2011 2:48 PM PHOTOGRAMMETRIC TECHNICIAN Inhaled Oxygen Concentration - - Weight 65.9 kg (145 lb 3.2 oz) 05/09/2024 10:02 AM PHOTOGRAMMETRIC TECHNICIAN Height 167.6 cm (5' 6 ) 05/09/2024 10:02 AM PHOTOGRAMMETRIC TECHNICIAN Body Mass Index 23.44 05/09/2024 10:02 AM PHOTOGRAMMETRIC TECHNICIAN Plan of Treatment Not on file Procedures Procedure Name Priority Date/Time Associated Diagnosis Comments PAP IG RFLX HPV HR ASCUS RFLX 16/18/45 Routine 05/09/2024 10:10 AM PHOTOGRAMMETRIC TECHNICIAN Pap smear, as part of routine gynecological examination MAMMOGRAM 06/10/2023 from Last 3 Months or Most Recently Relevant to Health Maintenance Results * PAP IG RFLX HPV HR ASCUS RFLX 16/18/45 (05/09/2024 10:10 AM PHOTOGRAMMETRIC TECHNICIAN) Diagnosis Comment [facility] ACCOUNT BILL Comment: NEGATIVE FOR INTRAEPITHELIAL LESION OR MALIGNANCY. CELLULAR CHANGES ASSOCIATED WITH ATROPHY ARE PRESENT. Specimen Adequacy Comment [facility] ACCOUNT BILL Comment: Satisfactory for evaluation. Endocervical and/or squamous metaplastic cells (endocervical component) are present. Clinician Provided ICD10 Comment [facility] ACCOUNT BILL Comment:Z01.419 Performed by Comment [facility] ACCOUNT BILL Comment:Elvie Mane, Cyto technologist (ASCP) Comment . [facility] ACCOUNT BILL Note Comment [facility] ACCOUNT BILL Comment: The Pap smear is a screening test designed to aid in the detection of premalignant and malignant conditions of the uterine cervix. It is not a diagnostic procedure and should not be used as the sole means of detecting cervical cancer. Both false-positive and false-negative reports do occur. IGLBP [...] UTERINE CERVIX / Unknown 05/09/2024 10:10 AM PHOTOGRAMMETRIC TECHNICIAN 05/09/2024 Comment:Cervix Release to jayashree Mayen [facility] ACCOUNT BILL - 05/17/2024 5:09 PM PHOTOGRAMMETRIC TECHNICIAN Performed at: 01 - [address] [place] [id number] Rn Disease Management: Ruthy Diego MD, Phone: [phone] Specimen Comment: [id number] Specimen Comment: Source.............Cervix;Endocervix Specimen Comment: No. of containers..01 ThinPrep Vial oKdi Medina MD LAB - PATHOLOGY/CYTO LOGY ORDERABLES [facility] ACCOUNT BILL [address] [place] [address] * MAMMOGRAM (06/10/2023) Anatomical Region Laterality Modality [...] 2:57 PM 06/11/2011 12:36 AM Care Teams Genetics Teacher Relationship Specialty Start Date End Date Kodi Medina MD PCP - OBGYN 05/06/08 Tejas Jean DO [address] [address] PCP - General Internal Medicine 02/26/22
--- OUTSIDE RECORDS SUMMARY | 2024-08-08 10:49 | XMS_ITS | Clinical Summary ---
Author Organization [facility] Address [address] [place] [address] Care Team Providers Care Tube Worker Name Role Phone Kodi Medina MD Unavailable [phone] Tejas Jean DO Primary Care Provider [phone] Source Comments [facility],non-owned Affiliates and Associated Physician Practices is amultiple site organization consisting of ambulatory clinics and hospital sitesin [place], [place], [place] and [place]. This disclosure is being madepursuant to the Care Everywhere program and may not contain all information available regarding this patient. Last updated 18.[facility] Allergies No known active allergies Medications [...] Department Care Team Description 05/09/2024 10:00 AM DIRECTOR OF MARKETING AND PROMOTIONS Office Visit [facility] Medical [facility] - PRODUCT AMBASSADOR [address] [place] [address], [address] [place] [phone] Kodi Medina MD Pap smear, as [...] Comments Blood Pressure 130/78 05/09/2024 10:02 AM DIRECTOR OF MARKETING AND PROMOTIONS Pulse 82 08/19/2011 2:48 PM DIRECTOR OF MARKETING AND PROMOTIONS Temperature 36.7 C (98 F) 08/19/2011 1:26 PM DIRECTOR OF MARKETING AND PROMOTIONS Respiratory Rate 18 08/19/2011 2:48 PM DIRECTOR OF MARKETING AND PROMOTIONS Oxygen Saturation 98% 08/19/2011 2:48 PM DIRECTOR OF MARKETING AND PROMOTIONS Inhaled Oxygen Concentration - - Weight 65.9 kg (145 lb 3.2 oz) 05/09/2024 10:02 AM DIRECTOR OF MARKETING AND PROMOTIONS Height 167.6 cm (5' 6 ) 05/09/2024 10:02 AM DIRECTOR OF MARKETING AND PROMOTIONS Body Mass Index 23.44 05/09/2024 10:02 AM DIRECTOR OF MARKETING AND PROMOTIONS Plan of Treatment Health Maintenance Due Date [...] ASCUS RFLX 16/18/45 Routine 05/09/2024 10:10 AM DIRECTOR OF MARKETING AND PROMOTIONS Pap smear, as part of routine gynecological examination MAMMOGRAM 06/10/2023 from Last 3 Months or Most Recently Relevant to Health Maintenance Results * PAP IG RFLX HPV HR ASCUS RFLX 16/18/45 (05/09/2024 10:10 AM DIRECTOR OF MARKETING AND PROMOTIONS) Diagnosis Comment [facility] ACCOUNT BILL Comment: NEGATIVE [...] UTERINE CERVIX / Unknown 05/09/2024 10:10 AM DIRECTOR OF MARKETING AND PROMOTIONS 05/09/2024 Comment:Cervix Release to jayashree Mayen [facility] ACCOUNT BILL - 05/17/2024 5:09 PM DIRECTOR OF MARKETING AND PROMOTIONS Performed at: - [address] [place] [id number] Washer And Capper Machine Operator: Ruthy Diego MD, Phone: [phone] Specimen Comment: [id number] Specimen Comment: Source.............Cervix;Endocervix Specimen Comment: No. of containers..01 ThinPrep Vial Kodi Medina MD LAB - PATHOLOGY/CYTO LOGY ORDERABLES [facility] ACCOUNT BILL [address] [place] [address] * MAMMOGRAM (06/10/2023) Anatomical Region Laterality Modality [...] 2:57 PM 06/11/2011 12:36 AM Care Teams Tube Worker Relationship Specialty Start Date End Date Kodi Medina MD PCP - OBGYN 05/06/08 Tejas Jean DO [address] [facility] [address] [place] [address] PCP - General Internal Medicine 02/26/22
--- OUTSIDE RECORDS SUMMARY | 2024-08-08 10:49 | XMS_ITS | Patient Health Summary ---
Author Organization [facility] Address [address] [facility] [place] [address] Care Team Providers Care Shop Girl Name Role Phone Kodi Méndez MD Unavailable [phone] Tejas Jean DO Primary Care Provider Note from [facility],non-owned Affiliates and Associated Physician Practices is amultiple site organization consisting of ambulatory clinics and hospital sitesin [place], [place], [place] and [place]. This disclosure is being madepursuant to the Care Everywhere program and may not contain all information available regarding this patient. Last updated 18.[facility] Allergies No known active allergies Medications * [...] Comments Blood Pressure 130/78 05/09/2024 10:02 AM COMPUTER GRAPHICS ILLUSTRATOR Pulse 82 08/19/2011 2:48 PM COMPUTER GRAPHICS ILLUSTRATOR Temperature 36.7 C (98 F) 08/19/2011 1:26 PM COMPUTER GRAPHICS ILLUSTRATOR Respiratory Rate 18 08/19/2011 2:48 PM COMPUTER GRAPHICS ILLUSTRATOR Oxygen Saturation 98% 08/19/2011 2:48 PM COMPUTER GRAPHICS ILLUSTRATOR Inhaled Oxygen Concentration - - Weight 65.9 kg (145 lb 3.2 oz) 05/09/2024 10:02 AM COMPUTER GRAPHICS ILLUSTRATOR Height 167.6 cm (5' 6 ) 05/09/2024 10:02 AM COMPUTER GRAPHICS ILLUSTRATOR Body Mass Index 23.44 05/09/2024 10:02 AM COMPUTER GRAPHICS ILLUSTRATOR Procedures * PAP IG RFLX HPV HR [...] HR ASCUS RFLX 16/18/45 (05/09/2024 10:10 AM COMPUTER GRAPHICS ILLUSTRATOR) Only the most recent of4 resultswithin the [...] UTERINE CERVIX / Unknown 05/09/2024 10:10 AM COMPUTER GRAPHICS ILLUSTRATOR 05/09/2024 Comment:Cervix Release to jayashree dougherty Narrative [facility] ACCOUNT BILL - 05/17/2024 5:09 PM COMPUTER GRAPHICS ILLUSTRATOR Performed at: - [address] [place] [id number] Boilermaker'S Assistant: Ruthy Diego MD, Phone: [phone] Specimen Comment: [id number] Specimen Comment: Source.............Cervix;Endocervix Specimen Comment: No. of containers..01 ThinPrep Vial Kodi Méndez MD LAB - PATHOLOGY/CYTO LOGY ORDERABLES [facility] ACCOUNT BILL [address] [place] [address] * MAMMOGRAM (06/10/2023) Only the most recent [...] ITHELIAL LESION AND MALIGNANCY. Specimen Adequacy [facility] INSURANCE BILL Comment: Satisfactory for evaluation. Endocervical and/or squamous metaplastic cells (endocervical component) are present. Clinician Provided ICD10 [facility] INSURANCE BILL Comment:Z01.419 Performed by [facility] INSURANCE BILL Comment:Maine Horne, Cyto technologist (ASCP) [...] Both false-positive and false-negative reports do occur. . IGLBP CPT Code Automation [facility] INSURANCE BILL Comment: This liquid based ThinPrep(R) pap test was screened with the use of an image guided system. Note [facility] INSURANCE BILL Comment: The HPV DNA reflex criteria were not met with this specimen result therefore, no HPV testing was performed. . PART OF UTERINE CERVIX / Unknown 11/02/2017 11:25 AM CDT 11/03/2017 Narrative [facility] INSURANCE BILL - 11/04/2017 3:18 PM CDT No. of containers..01 ThinPrep Vial Resulting Agency [facility] [address] [facility] [place] [id number] Kodi Méndez MD LAB - PATHOLOGY/CYTO LOGY ORDERABLES [facility] INSURANCE BILL [address] [place] [address] * PAP SMEAR IG RFLX HPV ASCU (PO REF LAB) (03/19/2015 10:16 AM CDT) Only the most recent of3 resultswithin the time period is included. Diagnosis [facility] INSURANCE BILL Comment:NEGATIVE FOR INTRAEP ITHELIAL LESION AND MALIGNANCY. Specimen Adequacy [facility] INSURANCE BILL Comment: Satisfactory for evaluation. Endocervical and/or squamous metaplastic cells (endocervical component) are present. Clinician Provided ICD10 [facility] INSURANCE BILL Comment:Z01.419 Performed by [facility] INSURANCE BILL Comment:Sandra Mora Cytot echnologist (ASCP) Comment . [facility] INSURANCE BILL Note [facility] INSURANCE BILL Comment: The Pap smear is a screening test designed to aid in the detection of premalignant and malignant conditions of the uterine cervix. It is not a diagnostic procedure and should not be used as the sole means of detecting cervical cancer. Both false-positive and false-negative reports do occur. . IGLBP CPT Code Automation [facility] INSURANCE BILL Comment: This liquid based ThinPrep(R) pap test was screened with the use of an image guided system. Note [facility] INSURANCE BILL Comment: The HPV DNA reflex criteria were not met with this specimen result therefore, no HPV testing was performed. . Miscellaneous samples (specimen) PART OF UTERINE CERVIX / Unknown 03/19/2015 10:16 AM CDT 03/20/2015 3:30 AM CDT Narrative [facility] INSURANCE BILL - 03/23/2015 3:09 PM CDT No. of containers..01 CYTYC Thin Prep Vial Resulting Agency Comment [facility] [place] [address] [place] [id number] Kodi Méndez MD LAB - PATHOLOGY/CYTO LOGY [...] GROSS + MICRO EXAM (08/19/2011 11:20 AM COMPUTER GRAPHICS ILLUSTRATOR) Only the most recent of6 resultswithin the time period is included. Result CASE NUMBER [id number] Comment: ORDERING PHYSICIAN KODI MÉNDEZ SPECIMEN TYPE Endometrium,Curetti DATE OF PROCEDURE 08/19/2011 SPECIMEN LABELED Endometrial curetting PRE-OP DIAGNOSIS Menorrhagia GROSS DESCRIPTION GROSS DESCRIPTION Received in formalin in a container labeled, Antoinette Navarro, endometrial curetting . The container holds a clear suction cup device containing multiple pink-gooden and red tissue fragments measuring 3 x 2.5 x 0.2 cm in aggregate. The specimen is placed in a nylon tea bag and entirely submitted in a single cassette. DYT/na MICROSCOPIC DESCRIPTION Histologic sections show fragments of inactive endometrium. One fragment shows a benign smooth muscle proliferation consistent with a submucosal/intramucosal leiomyoma. There is no evidence of hyperplasia or malignancy. KL/na DIAGNOSIS Uterus, endometrium, curettage - Inactive endometrium - Submucosal leiomyoma - No evidence of hyperplasia or malignancy KL/na CPT 58725 Herpetologist MADAY SCHUMACHER Electronically Signed By SOPHIA ELIZABETH MISCELLANEOUS SAMPLES / Unknown 08/19/2011 11:20 AM COMPUTER GRAPHICS ILLUSTRATOR 08/19/2011 2:19 PM COMPUTER GRAPHICS ILLUSTRATOR Historical Provider LAB - PATHOLOGY/C YTOLOGY ORDERABLES * (ABNORMAL) CBC W AUTO DIFFERENTIAL (08/19/2011 10:00 AM COMPUTER GRAPHICS ILLUSTRATOR) Only the most recent of3 resultswithin the time period is included. WBC 7.97 4.0 - 11.0 X(10)9/L [facility] RBC 4.61 3.8 - 5.3 X(10)12/L [facility] Hemoglobin 12.4 12.0 - 16.0 gm/dl [facility] Hematocrit 37.8 36 - 47 % [facility] MCV 82.0 80.0 - 99.0 fl [facility] MCH 26.9 26 - 34 pg [facility] MCHC 32.8 32.0 - 37.0 gm/dl [facility] RDW 14.8(H) 11.5 - 14.5 % [facility] Platelet Count 238 150 - 400 X(10)9/L [facility] MPV 11.6 9.2 - 12.2 fl [facility] Granulocytes % 73.2(H) 43 - 70 % [facility] Granulocytes Absolute 5.83 1.7 - 6.7 X(10)3 [facility] Lymphocytes % 20.3(L) 22 - 41 % [facility] Lymphocytes Absolute 1.62 0.9 - 3.2 X(10)3 [facility] Monocytes % 5.5 2.0 - 11.0 % [facility] Monocytes Absolute 0.44 0.2 - 0.9 X(10)3 [facility] Eosinophils % 0.5 0.0 - 5.0 % [facility] Eosinophils Absolute 0.04 0.0 - 0.4 X(10)3 [facility] Basophils % 0.5 0 - 2 % [facility] Basophils Absolute 0.04 0.0 - 0.2 X(10)3 [facility] Comment Manual Diff Manual Diff Not Indicated [facility] Blood specimen (specimen) BLOOD SPECIMEN / Unknown 08/19/2011 10:00 AM COMPUTER GRAPHICS ILLUSTRATOR 08/19/2011 10:04 AM COMPUTER GRAPHICS ILLUSTRATOR Kodi Méndez MD LAB - HEMATOLOGY ORD ERABLES [facility] [address] [place] [address] * HCG URINE QUALITATIVE - POINT OF CARE (08/19/2011 8:55 AM COMPUTER GRAPHICS ILLUSTRATOR) Only the most recent of2 resultswithin the time period is included. HCG Qual Urine negative Negative [facility] POCT TESTING QC Verified yes Yes [facility] POC T TESTING Urine specimen (specimen) URINE / Unknown 08/19/2011 8:55 AM COMPUTER GRAPHICS ILLUSTRATOR Kodi Méndez MD LAB - POINT OF CARE ORDERABLES Performing Organization Address City/[facility]/ZIP Co de Phone Number [facility] [address] [place] [address] * CARDIAC RHYTHM STRIP ORDER (06/19/2011 1:39 PM COMPUTER GRAPHICS ILLUSTRATOR) Narrative Transcriptions Document, Scanned - 06/19/2011 1:39 PM CST Scanned Document CARDIAC SERVICES ORD ERABLES * (ABNORMAL) CBC W/O DIFFERENTIAL (05/31/2011 3:55 PM COMPUTER GRAPHICS ILLUSTRATOR) WBC 6.5 4.0 - 10.5 x10E3/uL [facility] [...] BLOOD SPECIMEN / Unknown 05/31/2011 3:55 PM COMPUTER GRAPHICS ILLUSTRATOR 05/31/2011 10:46 PM COMPUTER GRAPHICS ILLUSTRATOR Narrative Resulting Agency Comment [facility] [address] [facility] [id number] Kodi Méndez MD LAB - HEMATOLOGY ORD ERABLES [facility] INSURANCE BILL * MAMMO DIAG DIRECT DIGITAL IMAGE UNIL RIGHT (08/19/2010) Anatomical Region Laterality Modality Right Other Kodi Méndez MD MAMMO ORDERABLES * CYTOLOGY SMEAR PAP (08/19/1998 9:33 AM COMPUTER GRAPHICS ILLUSTRATOR) Result CASE NUMBER [id number] Comment: ORDERING PHYSICIAN TATIANNA PURCELL SPECIMEN TYPE PAP Smear Date 08/19/1998 Procedure Cervical/Endocervical, 2 smears received Specimen Adequacy Satisfactory for Evaluation Categorization Within Normal Limits Snomed. 08/21/1998 1432 <1> Recruiting Administrator Montana Diaz (ASCP) PAP Footnote The PAP smear is only a screening procedure to aid in the detection of cervical cancer and its precursors. It is not a diagnostic procedure and should not be used as the sole means to detect cervical cancer. Both false negative and false positive results have been experienced. MISCELLANEOUS SAMPLES / Unknown 08/19/1998 9:33 AM COMPUTER GRAPHICS ILLUSTRATOR 08/20/1998 9:33 AM COMPUTER GRAPHICS ILLUSTRATOR Historical Provider LAB - PATHOLOGY/C YTOLOGY ORDERABLES Care Teams Shop Girl Relationship Specialty Start Date End Date Kodi Méndez MD PCP - OBGYN 05/06/08 Tejas Jean DO [address] [facility] [address] [place] [address] PCP - General Internal Medicine 02/26/22
== END 2024-08-08 09:46 | disposition home or self-care (01) ==
LOC: ANHIMG 09:47
PROVIDERS: PCP Family Medicine
DX: Z12.31 Encounter for screening mammogram for malignant neoplasm of breast (principal)
CPT/HCPCS: 77063; 77067